=== PATIENT | female | born 1970 | race Caucasian/White ===

== ENCOUNTER 2023-02-10 06:59 | Day surgery (SDC) | payer OTHER ==
[~2023-02-10] VITALS: Ht 154.9 cm; Wt 62.6 kg
[2023-02-10] MEDS ORDERED: fentaNYL citrate 0.05 MG/ML VIAL ONE (07:40)
[2023-02-10] MEDS ORDERED: MIDAZOLAM 5 MG/5 ML VIAL ONE (07:41)
[2023-02-10] MEDS ORDERED: LIDOCAINE 2% 100 MG/5 ML UJET TP ONE (07:41)
[2023-02-10] MEDS ORDERED: diphenhydrAMINE 50 MG/ML VIAL ONE (07:51)
[2023-02-10] MEDS ORDERED: MIDAZOLAM 2 MG/2 ML VIAL IVP ONE (08:30)
[2023-02-10] MEDS ORDERED: fentaNYL citrate 0.05 MG/ML VIAL IVP ONE (08:30)
== END 2023-02-10 08:58 | disposition home or self-care (01) ==
LOC: MDS 06:59 → MMU 07:00 → MDS 08:58
PROVIDERS: ATTEND Internal Medicine Gastroenterology
DX: Z12.11 Encounter for screening for malignant neoplasm of colon (principal); K63.5 Polyp of colon; K64.9 Unspecified hemorrhoids; Z79.899 Other long term (current) drug therapy
CPT/HCPCS: 45380; 45385; 88305; J2250; J3010; J1200